=== PATIENT | female | born 1930 | race Caucasian/White ===

== ENCOUNTER 2018-01-14 11:51 | Inpatient (IN) | payer OTHER ==
[~2018-01-14] VITALS: Ht 144.8 cm; Wt 79.2 kg
[2018-01-14 11:55] VITALS: BP 135/62
--- NOTE | 2018-01-14 12:00 | NUR ---
PATIENT TAKEN TO ER BED 2
[2018-01-14] MEDS ORDERED: GLIP5TAB4 PO (12:04)
[2018-01-14] MEDS ORDERED: METF500T PO (12:04)
[2018-01-14] MEDS ORDERED: ALPR1TAB2 PO (12:04)
[2018-01-14] MEDS ORDERED: ORE25 PO (12:04)
--- NOTE | 2018-01-14 12:08 | NUR ---
Patient being evaluated by physician at bedside.
[2018-01-14] MEDS ORDERED: NACL 0.9% 1,000 ML IV ONE (12:10)
--- NOTE | 2018-01-14 12:10 | NUR ---
87Y/F C/O DIARRHEA SINCE LAST NIGHT; TOOK IMMODIUM WITH NO IMPROVEMENT. HX DM, HTN. AAOX4 WITH EVEN AND STEADY GAIT; PATIENT STATES PAIN OF 8/10 AT THIS TIME; PATIENT POSITIONED FOR COMFORT; HOB ELEVATED; BEDRAILS UP X2; BED DOWN. ER MD MADE AWARE OF PT STATUS.
--- NOTE | 2018-01-14 12:17 | NUR ---
PT WENT TO CT
[2018-01-14 13:05] LABS: BASOPHILS % (AUTO) 0.2 % (0.0-2.0); EOSINOPHILS % (AUTO) 0.1 % (0.0-4.0); HEMATOCRIT 40.8 % (36-48); HEMOGLOBIN 13.6 g/dL (12.0-16.0); LYMPHOCYTES # (AUTO) 0.8 K/uL (2.5-16.5); LYMPHOCYTES % (AUTO) 14.7 % (20.5-51.1); MEAN CORPUSCULAR HEMOGLOBIN 29 pg (27-31); MEAN CORPUSCULAR HGB CONC 34 g/dL (33-37); MEAN CORPUSCULAR VOLUME 87.3 fL (80-94); MONOCYTES # (AUTO) 0.7 K/uL (0.8-1.0); MONOCYTES % (AUTO) 12.4 % (1.7-9.3); NEUTROPHILS % (AUTO) 72.6 % (42.2-75.2); PLATELET COUNT (AUTO) 138 K/uL (140-450); RED BLOOD CELL COUNT(AUTO) 4.67 MIL/uL (4.20-5.40); RED CELL DISTRIBUTION WIDTH 13.8 % (11.6-13.7); WHITE BLOOD COUNT (AUTO) 5.5 K/uL (4.8-10.8)
[2018-01-14 13:52] LABS: ALBUMIN 3.9 g/dL (3.4-5.0); ANION GAP 17.5 (8-16); ASPARTATE AMINOTRANSFERASE 29 U/L (15-37); CARBON DIOXIDE 20.9 mmol/L (21-32); CHLORIDE 103 mmol/L (98-107); CREATININE 0.9 mg/dL (0.6-1.3); GLUCOSE 152 mg/dL (74-106); POTASSIUM 3.4 mmol/L (3.5-5.1); SODIUM SERUM 138 mmol/L (136-145); TOTAL BILIRUBIN 0.5 mg/dL (0.0-1.0); UREA NITROGEN, BLOOD 17 mg/dL (7-18)
[2018-01-14 15:14] LABS: BILIRUBIN,URINE NEGATIVE (NEGATIVE); BLOOD, URINE NEGATIVE (NEGATIVE); COLOR,URINE ORANGE (YELLOW); LEUKOCYTE ESTERASE ,URINE NEGATIVE (NEGATIVE); NITRITE, URINE NEGATIVE (NEGATIVE); PH,URINE 5.5 (5.0-9.0); UGLUCOSE NEGATIVE (NEGATIVE)
[2018-01-14 15:20] LABS: APPEARANCE,URINE CLEAR (CLEAR)
[2018-01-14] MEDS ORDERED: MORPHINE SULFATE 4 MG/ML SYR IVP PRN (15:55)
[2018-01-14] MEDS ORDERED: ACETAMINOPHEN 325 MG TAB PO PRN (15:55)
[2018-01-14] MEDS ORDERED: DEXTROSE 50% 50 ML SYR IVP PRN (15:55)
[2018-01-14] MEDS: NACL 0.9% 1,000 ML IV SCH (15:55)
[2018-01-14] MEDS ORDERED: ALPRAZolam 0.5 MG TAB PO PRN (15:55)
[2018-01-14] MEDS ORDERED: ONDANSETRON 4 MG/2 ML VIAL IVP PRN (15:55)
[2018-01-14] MEDS ORDERED: INSULIN LISPRO SLIDING SCALE 100 UNITS/ML VIAL SUBQ PRN (15:55)
[2018-01-14] MEDS ORDERED: HYDROcodone/APAP 5/325 MG 1 TAB TAB PO PRN (15:55)
--- NOTE | 2018-01-14 16:25 | NUR ---
Patient will be admitted to care of dr. don. Admited to med surg. Will go to room 124 b. Belongings list completed. Report to jb nicholson.
[2018-01-14] MEDS: BLOOD GLUCOSE MONITORING 1 DEV DEV FS SCH ×2 (16:30→20:50)
--- NOTE | 2018-01-14 16:52 | NUR ---
Note terra in ED - 01/14/18 at 1654 by MEDADOLFO Patient will be admitted to care of dr. don. Admited to med surg. Will go to room 124 b. Belongings list completed. Report to jb nicholson.
--- NOTE | 2018-01-14 17:00 | NUR ---
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 WOUND CARE CONSULT ORDERED FOR THE PT.
--- NOTE | 2018-01-14 17:00 | NUR ---
RECEIVED PT REPORT FROM ER NURSE ELAINE AT BEDSIDE. PT IS AWAKE, ALERT, OX4. OCCITAN SPEAKING. DAUGHTER AT BEDSIDE. PREFERS TO USE DAUGHTER FOR TRANSLATION. PT IS AMBULATORY WITH ASSIST, USES CANE AND WALKER AT HOME. HX OF FALL LAST WED. ONLY A LITTLE PAIN AFTER THE FALL. C/O ABD PAIN 03/20, WILL ADMINISTERED PAIN MED ORDERED. IV NOTED TO THE LEFT HAND, 22G, INFUSING WELL. VITALS SIGNS TAKEN. MRSA DONE. DENIES NAUSEA AND VOMITING AT THIS TIME. DIARRHEA X1 IN ER. PLACE PT ON FALL RISK. INITIAL ASSESSMENT DONE. DISCUSSED PLAN OF CARE, PT VERBALIZED UNDERSTANDING. ORIENTED PT TO THE ROOM. CALL LIGHT WITHIN REACH. WILL CONTINUE TO MONITOR.
[2018-01-14 17:04] VITALS: BP 134/57
[2018-01-14] MEDS: glipiZIDE 5 MG TAB PO SCH (17:31)
--- NOTE | 2018-01-14 18:30 | NUR ---
PT ATE DINNER. NO DIARRHEA SINCE ARRIVED TO THE FLOOR. MADE PT AWARE THAT WE NEED STOOL SPECIMENS. PLACE HAT ON THE TOILET, SPECIMEN CUP IN THE ROOM.
--- NOTE | 2018-01-14 19:30 | NUR ---
ENDORSED PT TO BODY WELDER. PT IN STABLE CONDITION.
--- NOTE | 2018-01-14 19:40 | NUR ---
RECEIVED REPORT FROM DAY SHIFT, PATIENT RESTING IN BED, AWAKE ALERT ORIENTED X4, NO S/S OF DISTRESS NOTED, RESPIRATION EVEN AND UNLABORED. FAMILY MEMBERS AT BEDSIDE. IV PATENT AND INTACT, INFUSING NS AT 75ML/HR. PLAN OF CARE DISCUSSED, PATIENT VERBALIZED UNDERSTANDING. CALL LIGHT WITHIN REACH, SAFETY MEASURE ENSURED, WILL CONTINUE TO MONITOR.
[2018-01-14 20:00] VITALS: BP 130/53
--- NOTE | 2018-01-14 20:50 | NUR ---
STOOL COLLECTED AND SENT TO LAB. WILL CONTINUE TO MONITOR.
--- NOTE | 2018-01-14 21:51 | NUR ---
PATIENT HAD ANOTHER EPISODE OF DIARRHEA. PATIENT RESTING IN BED. CALL LIGHT WITHIN REACH, SAFETY MEASURE ENSURED, WILL CONTINUE TO MONITOR.
[2018-01-15] VITALS: BP 138/61
--- NOTE | 2018-01-15 00:01 | NUR ---
VITAL SIGNS STABLE, NO S/S OF DISTRESS NOTED, RESPIRATION EVEN AND UNLABORED, CALL LIGHT WITHIN REACH, SAFETY MEASURE ENSURED, WILL CONTINUE TO MONITOR.
--- NOTE | 2018-01-15 02:01 | NUR ---
PATIENT IS SLEEPING, NO S/S OF DISTRESS NOTED, RESPIRATION EVEN AND UNLABORED. CALL LIGHT WITHIN REACH, SAFETY MEASURE ENSURED, WILL CONTINUE TO MONITOR.
--- NOTE | 2018-01-15 03:34 | NUR ---
IV CATHETER WAS OUT. TIP INTACT, NO ACTIVE BLEEDING NOTED AT THE IV SITE. STATED NEW IV 22G ON RT FOREARM, PATIENT TOLERATED WELL. CALL LIGHT WITHIN REACH, SAFETY MEASURE ENSURED, WILL CONTINUE TO MONITOR.
[2018-01-15] MEDS: NACL 0.9% 1,000 ML IV SCH ×2 (05:57→14:07)
--- NOTE | 2018-01-15 06:18 | NUR ---
PATIENT IS SLEEPING, NO S/S OF DISTRESS NOTED, RESPIRATION EVEN AND UNLABORED, CALL LIGHT WITHIN REACH, SAFETY MEASURE ENSURED, WILL CONTINUE TO MONITOR.
[2018-01-15] MEDS: BLOOD GLUCOSE MONITORING 1 DEV DEV FS SCH ×4 (06:48→20:50)
[2018-01-15] MEDS: glipiZIDE 5 MG TAB PO SCH ×2 (06:52→16:33)
--- NOTE | 2018-01-15 07:07 | NUR ---
ENDORSED PLAN OF CARE TO DAY SHIFT NURSE, PATIENT IS IN STABLE CONDITION.
--- NOTE | 2018-01-15 07:11 | NUR ---
ASSUMED CONTINUITY OF CARE. NO SIGNS AND SYMPTOMS OF ACUTE DISTRESS NOTICED. INITIAL ASSESSMENT DONE. FAMILIARIZED WITH SURROUNDINGS. KEEP COMFORTABLE ON BED. EXPLAINED DIAGNOSIS, PLAN OF CARE, PAIN MANAGEMENT TEACHING, USE OF CALL LIGHT/BED/TV/BATHROOM. VERBALIZED UNDERSTANDING. CONTACT ISOLATION PRECAUTION AND FALL PRECAUTION APPLIED. CALL LIGHT WITHIN REACH.
--- NOTE | 2018-01-15 07:18 | NUR ---
PATIENT HAS BEEN SCREENED AND CATEGORIZED MODERATE NUTRITION RISK. PATIENT WILL BE SEEN WITHIN 3-5 DAYS OF ADMISSION. 01/16/18-01/18/18 MAHOGANY AGUILERA MS, RDN
[2018-01-15 07:43] LABS: BASOPHILS % (AUTO) 0.2 % (0.0-2.0); EOSINOPHILS % (AUTO) 0.2 % (0.0-4.0); HEMOGLOBIN 12.4 g/dL (12.0-16.0); LYMPHOCYTES # (AUTO) 1.5 K/uL (2.5-16.5); LYMPHOCYTES % (AUTO) 29.6 % (20.5-51.1); MEAN CORPUSCULAR HEMOGLOBIN 29 pg (27-31); MEAN CORPUSCULAR HGB CONC 34 g/dL (33-37); MEAN CORPUSCULAR VOLUME 87.7 fL (80-94); MONOCYTES # (AUTO) 0.8 K/uL (0.8-1.0); NEUTROPHILS # (AUTO) 2.9 K/uL (1.8-7.7); PLATELET COUNT (AUTO) 117 K/uL (140-450); RED BLOOD CELL COUNT(AUTO) 4.22 MIL/uL (4.20-5.40); RED CELL DISTRIBUTION WIDTH 13.7 % (11.6-13.7); WHITE BLOOD COUNT (AUTO) 5.2 K/uL (4.8-10.8)
[2018-01-15 07:53] LABS: ANION GAP 14.7 (8-16); CARBON DIOXIDE 25.8 mmol/L (21-32); CHLORIDE 104 mmol/L (98-107); CREATININE 0.8 mg/dL (0.6-1.3); GLUCOSE 145 mg/dL (74-106); POTASSIUM 3.5 mmol/L (3.5-5.1); SODIUM SERUM 141 mmol/L (136-145); UREA NITROGEN, BLOOD 11 mg/dL (7-18)
[2018-01-15 08:00] VITALS: BP 143/52
--- NOTE | 2018-01-15 08:00 | NUR ---
Patient's Plan of Care was discussed and reviewed with ROTATING EQUIPMENT ENGINEER: TWAN VILLASEÑOR
[2018-01-15] MEDS ORDERED: ENOXAPARIN 40 MG/0.4 ML SYR SUBQ SCH (09:00)
[2018-01-15] MEDS: ENOXAPARIN 30 MG/0.3 ML SYR SUBQ SCH (09:08)
--- NOTE | 2018-01-15 10:00 | NUR ---
DR. MAYA SEEN PT. AND SPOKE TO PT. AT BEDSIDE.
[2018-01-15] MEDS ORDERED: DIPHENOXYLATE /ATROPINE 2.5 MG TAB PO PRN (10:40)
[2018-01-15 12:00] VITALS: BP 146/56
--- NOTE | 2018-01-15 13:15 | NUR ---
Social Service Note: I received a call from rehabilitation case coordinator Philomena from [place] , she requested RN clinical review, I explained to her that this weekend we do not have any RN rehabilitation case coordinator available and offered to fax her any clinical information, however, she stated she was going to contact and obtain information from him.
--- NOTE | 2018-01-15 14:26 | NUR ---
Social Service Note: I called patient's daughter Anupama Tobin in order to obtain information about patient for assessment and inquire if she had any questions or concerns that we should be aware of, no answer, left message.
--- NOTE | 2018-01-15 19:16 | NUR ---
REPORT GIVEN TO CONOR HOPE. IVF INFUSING WELL. IN STABLE CONDITION.
--- NOTE | 2018-01-15 19:30 | NUR ---
RECEIVED REPORT FROM DAY SHIFT NURSE. PATIENT RESTING IN BED, FAMILY AT BEDSIDE. NO S/S OF DISTRESS NOTED, RESPIRATION EVEN AND UNLABORED, PLAN OF CARE DISCUSSED, PATIENT VERBALIZED UNDERSTANDING, CALL LIGHT WITHIN REACH, SAFETY MEASURE ENSURED, WILL CONTINUE TO MONITOR.
--- NOTE | 2018-01-15 22:45 | NUR ---
PATIENT RESTING IN BED, NO CHANGE IN CONDITION. CALL LIGHT WITHIN REACH, SAFETY MEASURE ENSURED, WILL CONTINUE TO MONITOR.
--- NOTE | 2018-01-15 23:35 | NUR ---
PATIENT ASKED FOR SLEEPING MEDICATION. BP 130/48, HR 68. MEDICATION GIVEN ORDERED. CALL LIGHT WITHIN REACH, SAFETY MEASURE ENSURED, WILL CONTINUE TO MONITOR.
[2018-01-16] VITALS: BP 130/48
--- NOTE | 2018-01-16 03:44 | NUR ---
PATIENT IS SLEEPING, NO S/S OF DISTRESS NOTED, RESPIRATION EVEN AND UNLABORED, CALL LIGHT WITHIN REACH, SAFETY MEASURE ENSURED, WILL CONTINUE TO MONITOR
--- NOTE | 2018-01-16 06:26 | NUR ---
PATIENT STATED NO DIARRHEA THROUGHOUT THE NIGHT.
[2018-01-16] MEDS: BLOOD GLUCOSE MONITORING 1 DEV DEV FS SCH ×2 (06:35→11:35)
[2018-01-16] MEDS: NACL 0.9% 1,000 ML IV SCH (06:46)
[2018-01-16] MEDS: glipiZIDE 5 MG TAB PO SCH (06:46)
--- NOTE | 2018-01-16 07:12 | NUR ---
ASSUMED CONTINUITY OF CARE. NO SIGNS AND SYMPTOMS OF ACUTE DISTRESS NOTED. INITIAL ASSESSMENT DONE. KEEP COMFORTABLE ON BED. EXPLAINED DIAGNOSIS, PLAN OF CARE, PAIN MANAGEMENT TEACHING, CONTACT ISOLATION PRECAUTION, USE OF CALL LIGHT/BED/TV/BATHROOM. VERBALIZED UNDERSTANDING. FALL PRECAUTION APPLIED. CALL LIGHT WITHIN REACH.
--- NOTE | 2018-01-16 07:25 | NUR ---
ENDORSED PLAN OF CARE TO DAY SHIFT RN. PATIENT IS IN STABLE CONDITION.
[2018-01-16 07:46] LABS: BASOPHILS % (AUTO) 0.1 % (0.0-2.0); EOSINOPHILS % (AUTO) 0.6 % (0.0-4.0); HEMATOCRIT 39.6 % (36-48); HEMOGLOBIN 13.2 g/dL (12.0-16.0); LYMPHOCYTES # (AUTO) 2.3 K/uL (2.5-16.5); LYMPHOCYTES % (AUTO) 30.9 % (20.5-51.1); MEAN CORPUSCULAR HEMOGLOBIN 29 pg (27-31); MEAN CORPUSCULAR HGB CONC 33 g/dL (33-37); MEAN CORPUSCULAR VOLUME 87.7 fL (80-94); MONOCYTES # (AUTO) 0.7 K/uL (0.8-1.0); MONOCYTES % (AUTO) 9.5 % (1.7-9.3); NEUTROPHILS # (AUTO) 4.3 K/uL (1.8-7.7); NEUTROPHILS % (AUTO) 58.9 % (42.2-75.2); PLATELET COUNT (AUTO) 124 K/uL (140-450); RED BLOOD CELL COUNT(AUTO) 4.52 MIL/uL (4.20-5.40); WHITE BLOOD COUNT (AUTO) 7.4 K/uL (4.8-10.8)
[2018-01-16 08:00] VITALS: BP 143/52
--- NOTE | 2018-01-16 08:00 | NUR ---
Patient's Plan of Care was discussed and reviewed with CONSTRUCTION TECHNOLOGY INSTRUCTOR: TWAN VILLASEÑOR
[2018-01-16 08:01] LABS: ALBUMIN 3.6 g/dL (3.4-5.0); ANION GAP 14.8 (8-16); ASPARTATE AMINOTRANSFERASE 37 U/L (15-37); CARBON DIOXIDE 26.2 mmol/L (21-32); CHLORIDE 105 mmol/L (98-107); CREATININE 0.7 mg/dL (0.6-1.3); GLUCOSE 132 mg/dL (74-106); SODIUM SERUM 143 mmol/L (136-145); TOTAL BILIRUBIN 0.5 mg/dL (0.0-1.0); UREA NITROGEN, BLOOD 7 mg/dL (7-18)
[2018-01-16] MEDS: ENOXAPARIN 30 MG/0.3 ML SYR SUBQ SCH (09:00)
[2018-01-16] MEDS ORDERED: POTASSIUM CHLORIDE 10 MEQ TABER PO SCH (09:00)
[2018-01-16] MEDS ORDERED: ATRO1TAB PO (09:03)
--- NOTE | 2018-01-16 10:50 | NUR ---
NENA FROM [facility] CALLED AND ASKED FOR PT. COPY OF MD D/C ORDER, AND PT. FACESHEET. AND PER NENA, SHE ALREADY SPOKE WITH DR. MAYA REGARDING PT. HOME HEALTH SERVICE FOR SAFETY. NENA PHONE NUMBER , FAX NUMBER . INFORMED CHARGE NURSE PRICILLA HOPE.
--- NOTE | 2018-01-16 11:16 | NUR ---
DOCUMENT CONTROL SUPERVISOR -HARPER CAME AND SPOKE TO PT. AND PT. DAUGHTER -MILLY REGARDING PT. D/C HOME WITH HOME HEALTH FOR SAFETY.
--- NOTE | 2018-01-16 14:25 | NUR ---
D/C HOME VIA WHEELCHAIR ACCOMPANIED BY PT. DAUGHTER -MILLY. AWAKE, ALERT, AND ORIENTED X4. SPEECH CLEAR. NO C/O PAIN. NO SOB, NOTED. IN STABLE CONDITION. INFORMED CHARGE NURSE PRICILLA HOPE.
--- NOTE | 2018-01-16 16:00 | NUR ---
Social Service Note Per Philomena from [facility] , she already arranged home health services for patient.
--- NOTE | 2018-01-17 08:18 | NUR ---
WOUND CARE EVALUATION NOT DONE. PT. DISCHARGED.
--- NOTE | 2018-01-17 14:46 | NUR ---
CM NOTE RETRO REVIEW FAXED TO [facility] / FAX# [phone]
== END 2018-01-16 14:25 | disposition home health service (06) | DRG 392 ==
LOC: MED 11:51 → MTU 16:01
PROVIDERS: ADMIT Internal Medicine; ATTEND Internal Medicine
DX: R19.7 Diarrhea, unspecified (principal); E86.0 Dehydration; E11.9 Type 2 diabetes mellitus without complications; I10 Essential (primary) hypertension; Z90.49 Acquired absence of other specified parts of digestive tract; Z79.84 Long term (current) use of oral hypoglycemic drugs
CPT/HCPCS: 36415; 80048; 80053; 81003; 82948; 85025; 87045; 87070; 87081; 96360; 96361; 99285; J1650; J1815; J2270; J7030